=== PATIENT | female | born 1965 | race African-American/Black ===

== ENCOUNTER 2017-06-15 09:45 | Emergency (ER) | payer SELFPAY ==
[~2017-06-15] VITALS: Ht 160 cm; Wt 55.0 kg
[2017-06-15 10:35] LABS: HEMATOCRIT. 31.7 % (36.0-48.0); HEMOGLOBIN. 10.3 g/dL (12.0-16.0); MEAN CORPUSCULAR HEMOGLOBIN 25.6 pg (28.0-32.0); MEAN CORPUSCULAR VOLUME 78.8 fL (81.0-99.0); PLATELET 305 x1000/uL (130-400); RED BLOOD CELL COUNT 4.02 mill/uL (4.2-5.4); RED CELL DISTRIBUTION WIDTH 15.5 % (11.6-14.6)
[2017-06-15 10:53] LABS: CARBON DIOXIDE 28 mEq/L (21-32); CHLORIDE 101 mEq/L (98-107); TROPONIN I < 0.02 ng/mL (0.00-0.04)
[2017-06-15 10:55] LABS: INR 1.1; PROTHROMBIN TIME 11.6 sec (9.4-11.6)
[2017-06-15 10:59] LABS: PLATELET ESTIMATE NORMAL
[2017-06-15] MEDS ORDERED: SODIUM CHLORIDE 0.9% 1,000 ML IV ONE (11:45)
[2017-06-15 13:11] VITALS: BP 122/78
== END 2017-06-15 13:27 | disposition home or self-care (01) ==
LOC: ER 09:59
DX: R00.0 Tachycardia, unspecified (principal); D72.1 Eosinophilia; D64.9 Anemia, unspecified; R05 Cough; Z88.0 Allergy status to penicillin
CPT/HCPCS: 36415; 71010; 80053; 83880; 84484; 85025; 85610; 93005; 96360; 99285; J7030; Z7610